=== PATIENT | female | born 1960 | race Hispanic/Latino ===

== ENCOUNTER 2021-10-09 17:10 | Emergency (ER) | payer OTHER, MEDICARE ==
[~2021-10-09] VITALS: Ht 152.4 cm; Wt 68.0 kg
[2021-10-09] MEDS ORDERED: LACTULOSE 20 GM/30 ML UDCUP PO ONE ×2 (17:30→21:00)
[2021-10-09] MEDS ORDERED: MAGNESIUM CITRATE 296 ML SOLUTION PO ONE ×2 (17:30→21:00)
[2021-10-09 17:52] LABS: BASOPHILS % (AUTO) 0.3 % (0.0-5.0); HEMATOCRIT 46.9 % (36-48); LYMPHOCYTES % (AUTO) 12.2 % (21.0-51.0); MEAN CORPUSCULAR HEMOGLOBIN 26.5 pg (27.0-33.0); MEAN CORPUSCULAR HGB CONC 31.3 g/dL (32.0-36.0); MEAN CORPUSCULAR VOLUME 84.7 fL (79-99); MONOCYTES % (AUTO) 2.2 % (3.0-13.0); PLATELET COUNT (AUTO) 257 K/uL (130-400); RED BLOOD CELL COUNT(AUTO) 5.54 MIL/uL (4.00-5.50); RED CELL DISTRIBUTION WIDTH 14.2 % (11.0-15.5); WHITE BLOOD COUNT (AUTO) 13.5 K/uL (4.8-10.8)
[2021-10-09 18:03] LABS: CREATININE 0.7 mg/dL (0.5-1.5); POTASSIUM 4.1 mmol/L (3.5-5.1)
[2021-10-09 18:08] LABS: ALBUMIN 4.2 g/dL (3.5-5.0); BILIRUBIN,TOTAL 0.4 mg/dL (0.2-1.0); TOTAL PROTEIN, SERUM 8.8 g/dL (6.0-8.3)
[2021-10-09 19:00] VITALS: BP 153/87
[2021-10-09] MEDS ORDERED: GLYC-30 RC (20:57)
[2021-10-09] MEDS ORDERED: LACT10PA5 PO (20:57)
== END 2021-10-09 21:57 | disposition home or self-care (01) ==
LOC: EDH 17:10
DX: K59.00 Constipation, unspecified (principal); R11.0 Nausea; E11.9 Type 2 diabetes mellitus without complications; E78.00 Pure hypercholesterolemia, unspecified; I10 Essential (primary) hypertension; F32.A Depression, unspecified
CPT/HCPCS: 36415; 74018; 74176; 80053; 85025

== ENCOUNTER → 2022-09-21 | Outpatient (CLI) | payer OTHER, MEDICARE ==
[~2022-09-21] MED LIST: GLYC-30 RC; LACT10PA5 PO
== END | disposition home or self-care (01) ==
LOC: SHCH 09:57
PROVIDERS: ATTEND Internal Medicine Cardiovascular Disease
DX: I11.9 Hypertensive heart disease without heart failure (principal); R01.1 Cardiac murmur, unspecified; E11.9 Type 2 diabetes mellitus without complications
CPT/HCPCS: 93306

== ENCOUNTER → 2022-10-26 | Outpatient (CLI) | payer OTHER, MEDICARE | END | disposition home or self-care (01) | LOC: SHCH 09:11 | PROVIDERS: ATTEND Internal Medicine Cardiovascular Disease | DX: I87.2 Venous insufficiency (chronic) (peripheral) (principal); I73.9 Peripheral vascular disease, unspecified | CPT/HCPCS: 93925; 93970 ==

== ENCOUNTER 2024-07-07 20:36 | Emergency (ER) | payer OTHER, MEDICARE ==
[~2024-07-07] VITALS: Ht 157.5 cm; Wt 77.1 kg
[2024-07-07] MEDS: hydrALAZine 20MG/ML VIAL IV ONE (21:09)
[2024-07-07] MEDS: NITROGLYCERIN 1GM OINT 1 INCH/1GM TD ONE (21:09)
[2024-07-07 21:15] LABS: BASOPHILS # (AUTO) 0.02 K/uL (0.00-0.20); BASOPHILS % (AUTO) 0.2 % (0.0-5.0); EOSINOPHILS # (AUTO) 0.06 K/uL (0.00-0.70); EOSINOPHILS % (AUTO) 0.6 % (0.0-8.0); HEMATOCRIT 39.3 % (36-48); IMMATURE GRANULOCYTE ABSOLUTE 0.04 K/uL (0-1); LYMPHOCYTES # (AUTO) 2.1 K/uL (1.0-4.8); LYMPHOCYTES % (AUTO) 23.1 % (21.0-51.0); MEAN CORPUSCULAR HEMOGLOBIN 27.2 pg (27.0-33.0); MEAN CORPUSCULAR HGB CONC 32.1 g/dL (32.0-36.0); MEAN CORPUSCULAR VOLUME 84.9 fL (79-99); MONOCYTES # (AUTO) 0.4 K/uL (0.1-1.0); NEUTROPHILS # (AUTO) 6.6 K/uL (1.8-7.7); NEUTROPHILS % (AUTO) 71.7 % (40.0-77.0); PLATELET COUNT (AUTO) 190 K/uL (130-400); RED BLOOD CELL COUNT(AUTO) 4.63 MIL/uL (4.00-5.50); RED CELL DISTRIBUTION WIDTH 13.4 % (11.0-15.5); WHITE BLOOD COUNT (AUTO) 9.3 K/uL (4.8-10.8)
[2024-07-07 21:22] LABS: CREATININE 0.8 mg/dL (0.5-1.0); POTASSIUM 4.5 mmol/L (3.5-5.1)
[2024-07-07 21:38] LABS: B-TYPE NATRIURETIC PEPTIDE 81 pg/mL (0-100)
[2024-07-07] MEDS: MAG/ALUM/SIMETH 30 ML UDCUP PO ONE (22:25)
[2024-07-07] MEDS: DICYCLOMINE HCL 10 MG/5 ML ML PO ONE (22:26)
[2024-07-07] MEDS: ONDANSETRON 4MG INJ IVP ONE (22:26)
[2024-07-07] MEDS: LIDOCAINE HCL 2% VISCOUS 15 ML UDCUP PO ONE (22:26)
[2024-07-07 23:00] LABS: APPEARANCE,URINE CLEAR (CLEAR); BILIRUBIN,URINE NEGATIVE (NEGATIVE); COLOR,URINE COLORLESS (YELLOW); GLUCOSE, URINE (UA) >=1000 mg/dL (NEGATIVE); KETONES,URINE 10 mg/dL (NEGATIVE); LEUKOCYTE ESTERASE ,URINE NEGATIVE Leu/uL (NEGATIVE); NITRATE,URINE NEGATIVE (NEGATIVE); OCCULT BLOOD,URINE NEGATIVE (NEGATIVE); PH,URINE 7.5 (5.0-8.0); PROTEIN,URINE NEGATIVE (NEGATIVE); UROBILINOGEN,URINE 0.2 mg/dL (0.2-1.0)
[2024-07-07 23:04] LABS: ADD UA MICROSCOPIC YES
[2024-07-07 23:17] LABS: BACTERIA,URINE None Seen /HPF (None Seen); RBC,URINE 0-1 /HPF (0-1)
[2024-07-07 23:19] LABS: AMORPHOUS SEDIMENT,UR Few /LPF (None Seen)
[2024-07-07] MEDS: INSULIN humuLIN R 100 UNIT/ML 3ML SQ ONE (23:32)
[2024-07-07 23:43] VITALS: BP 139/65; PULSE 82; RESP 16; TEMP 98; O2SAT 99
== END 2024-07-07 23:46 | disposition home or self-care (01) ==
LOC: EDH 20:36
DX: I16.1 Hypertensive emergency (principal); F41.9 Anxiety disorder, unspecified; F32.A Depression, unspecified; E11.9 Type 2 diabetes mellitus without complications; E66.01 Morbid (severe) obesity due to excess calories; E78.00 Pure hypercholesterolemia, unspecified; I10 Essential (primary) hypertension; Z68.31 Body mass index [BMI] 31.0-31.9, adult
CPT/HCPCS: 99285; 96374; 70450; 71045; 96375; 84484; 80048; 83880; 85025; 82948; 81001; 36415; 93005; 96372; J1815; J0360; J2405

== ENCOUNTER 2025-01-20 05:00 | Emergency (ER) | payer OTHER, MEDICARE ==
[~2025-01-20] VITALS: Ht 162.6 cm; Wt 77.1 kg
[2025-01-20 05:06] VITALS: TEMP 98.4
[2025-01-20 05:17] VITALS: BP 159/78; PULSE 77; RESP 15; O2SAT 99
--- NOTE | 2025-01-20 05:33 | ERN ---
General Chief Complaint: Anxiety/Panic Attack Stated Complaint: ANXIETY Time Seen by MD: 05:25 Source: patient History of Present Illness Initial Comments Patient is relatively healthy 64-year-old female with a history of palpitations and a heart murmur and high blood pressure for which she takes medications. Patient woke up this morning at 3:00 a.m. feeling a little anxious and she measured her blood pressure and it was 200 systolic. She called EMS who brought her to the emergency room. I met the patient in the hallway she seemed calm she was on the phone talking. The bedside monitor showed a blood pressure of 160 over 80. The patient states that she feels fine now. She wonders if she misread her home blood pressure machine or if the machine malfunctioned. Currently the patient does not feel anxious does not have palpitations and has no chest pain and no shortness of breath and no symptoms suggestive of an acute [place]. Timing/Duration: 1 hour Allergies: Coded Allergies: No Allergy Information Available (Verified Allergy, Unknown, 10/09/21) Home Meds Active Scripts Glycerin (Glycerin) 1 Each Supp.rect, 1 EACH RC BID, #10 EA Prov:ITZ PARNELL 10/09/21 Lactulose (Lactulose) 10 Gm Packet, 10 GM PO DAILY, #30 PKT Prov:ITZ PARNELL 10/09/21 Past Medical History Past Medical History: Anxiety, Diabetes-Type II, Hypertension Medical History Other: GATRITIS Past Surgical History: Unknown Surgical History Other: ABSCESS UNKOWN LOCATION Family History Family History: Negative Social History Social History: Negative Physical Exam General Appearance: (+) no apparent distress Orientation: (+) oriented x 3 Eye: bilateral eye normal inspection, bilateral eye PERRL, bilateral eye EOMI Ear, Nose, Throat: (+) hearing grossly normal, (+) normal ENT inspection, (+) moist mucous membraine, (+) normal pharynx Neck: (+) normal inspection, (+) supple, (+) no JVD Respiratory: (+) chest non-tender, (+) lungs clear, (+) well ventilated Heart: (+) regular, (+) systolic murmur Vascular: (+) no edema Gastrointestinal: (+) soft, (+) non-tender, (+) bowel sound present MDM I discussed the situation with the patient and in my opinion she does not have any health condition present that mandates an emergency room visit. She agrees with me and would like to go home. I completed a medical clearance exam. I told her to follow up with her primary care physician as her blood pressure is still elevated but not critically elevated. ED Course Vital Signs Date Time Temp Pulse Resp B/P (MAP) Pulse Ox O2 Delivery O2 Flow Rate FiO2 01/20/25 05:17 77 15 159/78 99 Room Air* 0 21 01/20/25 05:06 98.4 83 14 142/95 97 Room Air 0 DX & DISP Disposition: Discharge Departure Impression: Primary Impression: Hypertension Condition: Stable Additional Instructions: Patient should follow-up with her primary care physician for adjustment of her blood pressure medications. Referrals: DEIRDRE BANKS MD (PCP) MARCOS BERMUDEZ MD Jan 20, 2025 05:33
== END 2025-01-20 05:38 | disposition home or self-care (01) ==
LOC: EDH 05:00
DX: I10 Essential (primary) hypertension (principal); E11.9 Type 2 diabetes mellitus without complications; Z79.899 Other long term (current) drug therapy
CPT/HCPCS: 99283